=== PATIENT | female | born 1950 | race Caucasian/White ===

== ENCOUNTER 2022-07-26 13:16 | Inpatient (IN) ==
[2022-07-26] MEDS ORDERED: DEXAMETHASONE 10 MG/1 ML VIAL IV STA (13:29)
[2022-07-26] MEDS ORDERED: SODIUM CHLORIDE 0.9% 1,000 ML IV STA ×3 (13:30→15:00)
[2022-07-26 13:52] LABS: Urine Appearance Cloudy (Clear); Urine Color Dark yellow (Yellow); Urine pH 5.5 (4.5-8.0)
[2022-07-26 13:52] LABS: PT Patient Result 11.4 SECS (10.1-12.1); Partial Thromboplastin Time < 20.0 SECS (23.7-32.9)
[2022-07-26 13:53] LABS: Bilirubin,Urine Moderate mg/dL (Negative); Blood, Urine Negative (Negative); Glucose,Urine (UA) Negative (Negative); Ketones,Urine 15 mg/dL (Negative); Nitrite,Urine Negative (Negative); Protein,Urine 30 mg/dL (Negative); Urine Specific Gravity > 1.030 (1.001-1.035)
[2022-07-26 13:54] LABS: Mucus,Urine Many /LPF (Occasional); RBC,Urine 1 /HPF (0-4); Squamous Epithelial Cell,Urine Occasional /HPF (0-10)
[2022-07-26 14:17] LABS: % Iron Saturation 14.4 % (18-50); Ferritin 341.4 ng/mL (8-252)
[2022-07-26] MEDS ORDERED: SODIUM CHLORIDE 0.9% 1,000 ML IV PRN (15:01)
[2022-07-26] MEDS ORDERED: ONDANSETRON 4 MG/2 ML VIAL IV PRN (15:06)
[2022-07-26] MEDS ORDERED: ACETAMINOPHEN 325 MG TABLET PO PRN (15:06)
[2022-07-26] MEDS ORDERED: DEXAMETHASONE 10 MG/1 ML VIAL IV ONE (16:18)
[2022-07-26 16:55] LABS: Folate > 24.00 NG/ML (5.38-24.0); Vitamin B12 311 PG/ML (211-911)
[2022-07-26] MEDS: LACTATED RINGERS 1,000 ML IV SCH (17:13)
[2022-07-26] MEDS: DEXAMETHASONE 10 MG/1 ML VIAL IV SCH (17:13)
[2022-07-26] MEDS ORDERED: diphenhydrAMINE 50 MG/1 ML VIAL IV ONE (17:47)
[2022-07-26] MEDS: ENOXAPARIN 40 MG/0.4 ML SYRINGE SUBCUT SCH (20:59)
[2022-07-27] MEDS: LACTATED RINGERS 1,000 ML IV SCH ×2 (02:13→11:47)
[2022-07-27 04:56] LABS: Basophils % 0.1 % (0.0-0.8); Hematocrit 24.6 VOL% (35.7-47.0); Hemoglobin 8.2 GM/DL (12.0-16.0); Immature Granulocytes % 0.6 %; Immature Granulocytes Absolute 0.06 #; Lymphocytes # 0.2 10*3/uL (1.4-4.0); Lymphocytes % 2.2 % (21.3-54.2); Mean Corpuscular HGB Conc 33.3 GM/DL (32-36); Mean Corpuscular Volume 81.5 FL (87-102); Mean Platelet Volume 8.9 FL (9.6-12.0); Monocytes # 0.5 10*3/uL (0.11-0.8); Monocytes % 4.9 % (1.7-12.7); Neutrophils % 92.2 % (38.7-73.9); Platelet Count 285 T/CUMM (130-400); Red Blood Count 3.02 MC/CUMM (3.8-5.5); Red Cell Distribution Width 13.7 % (9.3-17.3); White Blood Count 10.78 T/CUMM (4-12)
[2022-07-27 05:20] LABS: Band Neutrophils 1 % (0-10); Lymphocytes 2 % (20-55); Total Cells Counted 100
[2022-07-27 05:21] LABS: Microcytosis Slight
[2022-07-27 05:22] LABS: Ovalocytes Slight
[2022-07-27 05:23] LABS: Hypochromia Slight
[2022-07-27 05:26] LABS: Albumin 2.6 G/DL (3.4-5.0); Bilirubin,Total 0.9 MG/DL (0.20-1.00); Calcium 8.5 MG/DL (8.5-10.1); Osmolality,Calculated 279.7 MOS/KG (273-304); Potassium 4.1 MMOL/L (3.5-5.1); Total Protein 5.8 G/DL (6.4-8.2)
[2022-07-27] MEDS: LEVOTHYROXINE 25 MCG TABLET PO SCH (05:49)
[2022-07-27] MEDS: DEXAMETHASONE 10 MG/1 ML VIAL IV SCH ×2 (05:49→16:45)
[2022-07-27] MEDS ORDERED: HEPARIN 5,000 UNIT/1 ML VIAL ONE (07:41)
[2022-07-27 08:45] LABS: Hepatitis B Core IgM Quant 0.09 Index; Hepatitis B Surface Ag Quant 0.16 Index; Hepatitis B Surface Ag Result Non-Reactive (NonReactive); Hepatitis C Virus Ab Quant 0.04 Index; Hepatitis C Virus Ab Result Non-Reactive (NonReactive)
[2022-07-27] MEDS: MULTIVITAMIN (CENTRUM) TABLET PO SCH (08:49)
[2022-07-27] MEDS: PANTOPRAZOLE 40 MG TABLET PO SCH (08:49)
[2022-07-27] MEDS: METOPROLOL SUCCINATE XL 25 MG TABLET PO SCH (08:49)
[2022-07-27] MEDS: CALCIUM (CARBONATE)/VITAMIN D 600 MG-400 UNIT TABLET PO SCH (08:50)
[2022-07-27] MEDS ORDERED: lisinopriL 5 MG TABLET PO SCH (09:00)
[2022-07-27] MEDS: ENOXAPARIN 40 MG/0.4 ML SYRINGE SUBCUT SCH (20:33)
[2022-07-28 04:18] LABS: Basophils % 0.3 % (0.0-0.8); Hematocrit 23.8 VOL% (35.7-47.0); Hemoglobin 7.9 GM/DL (12.0-16.0); Immature Granulocytes % 0.8 %; Immature Granulocytes Absolute 0.06 #; Lymphocytes # 0.6 10*3/uL (1.4-4.0); Mean Corpuscular HGB Conc 33.2 GM/DL (32-36); Mean Corpuscular Volume 84.7 FL (87-102); Mean Platelet Volume 9.2 FL (9.6-12.0); Monocytes # 0.5 10*3/uL (0.11-0.8); Neutrophils % 83.9 % (38.7-73.9); Platelet Count 290 T/CUMM (130-400); Red Blood Count 2.81 MC/CUMM (3.8-5.5); White Blood Count 7.12 T/CUMM (4-12)
[2022-07-28 04:28] LABS: Albumin 2.6 G/DL (3.4-5.0); Bilirubin,Total 0.5 MG/DL (0.20-1.00); Calcium 8.6 MG/DL (8.5-10.1); Osmolality,Calculated 283.4 MOS/KG (273-304); Potassium 4.4 MMOL/L (3.5-5.1); Total Protein 5.7 G/DL (6.4-8.2)
[2022-07-28] MEDS: DEXAMETHASONE 10 MG/1 ML VIAL IV SCH ×2 (05:47→17:05)
[2022-07-28] MEDS: LEVOTHYROXINE 25 MCG TABLET PO SCH (05:47)
[2022-07-28] MEDS: PANTOPRAZOLE 40 MG TABLET PO SCH (08:45)
[2022-07-28] MEDS: CALCIUM (CARBONATE)/VITAMIN D 600 MG-400 UNIT TABLET PO SCH (08:45)
[2022-07-28] MEDS: allopurinoL 300 MG TABLET PO SCH ×2 (08:45→14:15)
[2022-07-28] MEDS: MULTIVITAMIN (CENTRUM) TABLET PO SCH (08:45)
[2022-07-28] MEDS: METOPROLOL SUCCINATE XL 25 MG TABLET PO SCH (08:45)
[2022-07-28 10:01] LABS: Scl 70 Ab, IgG, S < 0.2 U
[2022-07-28] MEDS ORDERED: BRENTUXIMAB VEDOTIN IV ONE (11:00)
[2022-07-28] MEDS ORDERED: SODIUM CHLORIDE 0.9% IV ONE (11:00)
[2022-07-28] MEDS ORDERED: diphenhydrAMINE CAP 50 MG CAPSULE PO ONE (13:30)
[2022-07-28] MEDS ORDERED: FAMOTIDINE 20 MG TABLET PO ONE (13:30)
[2022-07-28] MEDS ORDERED: PALONOSETRON 0.25 MG/5 ML VIAL IV ONE (13:30)
[2022-07-28] MEDS ORDERED: CYCLOPHOSPHAMIDE INJ 1,500 MG in SODIUM CHLORIDE 0.9% 250 ML IV ONE (14:30)
[2022-07-28] MEDS ORDERED: DOXORUBICIN IV ONE (14:30)
[2022-07-28] MEDS ORDERED: LORazepam 2 MG/1 ML VIAL IV PRN (18:56)
[2022-07-28] MEDS: ENOXAPARIN 40 MG/0.4 ML SYRINGE SUBCUT SCH (20:51)
[2022-07-29] MEDS: DEXAMETHASONE 10 MG/1 ML VIAL IV SCH ×2 (05:35→17:40)
[2022-07-29] MEDS: LEVOTHYROXINE 25 MCG TABLET PO SCH (05:35)
[2022-07-29 05:55] LABS: Basophils % 0.1 % (0.0-0.8); Eosinophils % 0.1 % (0.00-10.9); Hematocrit 22.7 VOL% (35.7-47.0); Hemoglobin 7.3 GM/DL (12.0-16.0); Immature Granulocytes % 1.3 %; Lymphocytes # 0.7 10*3/uL (1.4-4.0); Lymphocytes % 9.2 % (21.3-54.2); Mean Corpuscular HGB Conc 32.2 GM/DL (32-36); Mean Corpuscular Volume 86.3 FL (87-102); Mean Platelet Volume 9.2 FL (9.6-12.0); Monocytes # 0.7 10*3/uL (0.11-0.8); Neutrophils % 80.3 % (38.7-73.9); Platelet Count 295 T/CUMM (130-400); Red Blood Count 2.63 MC/CUMM (3.8-5.5); Red Cell Distribution Width 14.1 % (9.3-17.3)
[2022-07-29 06:01] LABS: Albumin 2.8 G/DL (3.4-5.0); Bilirubin,Total 0.4 MG/DL (0.20-1.00); Calcium 8.4 MG/DL (8.5-10.1); Potassium 4.3 MMOL/L (3.5-5.1); Total Protein 5.9 G/DL (6.4-8.2)
[2022-07-29] MEDS ORDERED: PEGFILGRASTIM 6 MG/0.6 ML SUBCUT ONE (07:41)
[2022-07-29] MEDS ORDERED: SODIUM CHLORIDE 0.9% 1,000 ML IV PRN (08:12)
[2022-07-29] MEDS: CALCIUM (CARBONATE)/VITAMIN D 600 MG-400 UNIT TABLET PO SCH (09:00)
[2022-07-29] MEDS: MULTIVITAMIN (CENTRUM) TABLET PO SCH (09:00)
[2022-07-29] MEDS: METOPROLOL SUCCINATE XL 25 MG TABLET PO SCH (09:00)
[2022-07-29] MEDS: allopurinoL 300 MG TABLET PO SCH (09:00)
[2022-07-29] MEDS: PANTOPRAZOLE 40 MG TABLET PO SCH (09:00)
[2022-07-29 19:08] VITALS: BP 138/75
== END 2022-07-29 18:45 | disposition home or self-care (01) | DRG 841 ==
LOC: EDBD → EDUNIT# → N.ED 13:16 → N.EDINP 15:06 → N.ICU 16:19
PROVIDERS: ADMIT Family Medicine; ATTEND Family Medicine